=== PATIENT | female | born 1935 | race Caucasian/White ===

== ENCOUNTER 2017-01-26 12:35 | Emergency (ER) | payer OTHER, BC ==
[~2017-01-26] VITALS: Ht 157.5 cm; Wt 83.8 kg
[2017-01-26 13:31] LABS: EOSINOPHIL (%) 0.6 % (0-5); HEMATOCRIT 42.4 % (36.0-46.0); IMMATURE GRANULOCYTE (%) 0.2 % (0.0-0.7); INSTRUMENT ABS NEUTROPHIL CT 3.5 K/uL; LYMPHOCYTE COUNT 1.2 K/uL (1.0-2.8); MCH 32.4 PG (29.0-34.0); MCV 95.3 FL (83-99); MEAN PLAT.VOLUME 10.3 uM^3 (9.5-12.4); MONOCYTE (%) 11.3 % (3-12); MONOCYTE COUNT 0.6 K/uL (0-0.8); NEUTROPHIL (%) 65.9 % (45-76); NEUTROPHIL COUNT 3.5 K/uL (1.8-6.4); PLATELET COUNT 219 K/uL (156-360); RBC DIS.WIDTH-CV 12.2 % (11.8-14.6); RED BLOOD COUNT 4.45 M/uL (3.80-5.20); WHITE BLOOD COUNT 5.3 K/uL (4.1-10.2)
[2017-01-26 13:36] LABS: PROTHROMBIN TIME 11.5 SEC (10.2-12.9)
[2017-01-26 13:39] LABS: PTT 29.5 SEC (25-37)
[2017-01-26 13:44] LABS: CHLORIDE 108 mEq/L (99-109); POTASSIUM 3.8 mEq/L (3.7-5.4); SODIUM 140 mEq/L (136-147)
[2017-01-26 13:46] LABS: GLUCOSE 94 mg/dL (70-99)
[2017-01-26 13:47] LABS: ANION GAP 12 MEQ/L (2-14)
[2017-01-26 13:48] LABS: TOTAL BILIRUBIN 0.4 mg/dL (0.0-1.0)
[2017-01-26 13:50] LABS: ALKALINE PHOSPHATASE 74 IU/L (3-129); GFR ESTIMATE (CALCULATED) > 59 mL/min/
[2017-01-26 13:51] LABS: UREA NITROGEN (BUN) 14 mg/dL (9-23)
[2017-01-26] MEDS ORDERED: CLARITIN10 MG PO (17:08)
[2017-01-26] MEDS ORDERED: OYSTER SHELL 51 EACH PO (17:09)
[2017-01-26] MEDS ORDERED: BREO ELLIPTA 21 EACH IH (17:10)
[2017-01-26] MEDS ORDERED: FLONASE16 G1 BOTH NARES (17:11)
[2017-01-26] MEDS ORDERED: BUPROPION XL150 MG PO (17:11)
[2017-01-26] MEDS ORDERED: LEVOTHYROXINE175 MCG PO (17:12)
[2017-01-26] MEDS ORDERED: PLAVIX75 MG PO (17:13)
[2017-01-26] MEDS ORDERED: LOSARTAN POTAS100 MG PO (17:13)
[2017-01-26] MEDS ORDERED: KETOTIFEN FUMARA5 M1 BOTH EYES (17:13)
[2017-01-26] MEDS ORDERED: PERCOCET 5/31 TABLET PO (17:14)
[2017-01-26] MEDS ORDERED: MONTELUKAST SOD10 MG PO (17:14)
[2017-01-26] MEDS ORDERED: TRAZODONE HCL100 MG PO (17:14)
[2017-01-26] MEDS ORDERED: SENEXON-S TABL1 EACH PO (17:15)
[2017-01-26] MEDS ORDERED: ACETAMINOPHEN325 M1 PO ×2 (17:16→17:23)
[2017-01-26] MEDS ORDERED: PRIMIDONE50 MG PO (17:17)
[2017-01-26] MEDS ORDERED: RISA-BID CAPLE1 EACH PO (17:17)
[2017-01-26] MEDS ORDERED: DIVALPROEX SOD250 MG PO (17:18)
[2017-01-26] MEDS ORDERED: CARAFATE100 MG/ML PO (17:19)
[2017-01-26] MEDS ORDERED: PANTOPRAZOLE SO40 MG PO (17:19)
[2017-01-26] MEDS ORDERED: HYDRALAZINE HCL50 MG PO (17:19)
[2017-01-26] MEDS ORDERED: ASPERCREME1 EACH TP (17:20)
[2017-01-26] MEDS ORDERED: VITAMIN D31000 UNI2 PO (17:20)
[2017-01-26] MEDS ORDERED: DULCOLAX10 MG PR (17:21)
[2017-01-26] MEDS ORDERED: LORAZEPAM0.5 MG PO (17:21)
[2017-01-26] MEDS ORDERED: DUONEB 2.5-0.5 M3 ML AEROSOL (17:21)
[2017-01-26] MEDS ORDERED: TUSSIN DM CLEA118 M1 PO (17:22)
[2017-01-26] MEDS ORDERED: MIRALAX17 GM PO (17:22)
[2017-01-26 18:15] LABS: MCV 95.2 FL (83-99)
[2017-01-26 22:06] VITALS: BP 159/93
== END 2017-01-26 22:31 | disposition home or self-care (01) ==
LOC: EME 12:35
PROVIDERS: Emergency Medicine
PROC: 0JQ83ZZ Repair Abdomen Subcutaneous Tissue and Fascia, Percutaneous Approach (ICD-10-PCS; principal; 2017-01-26)
DX: T81.30XA Disruption of wound, unspecified, initial encounter (principal); K43.9 Ventral hernia without obstruction or gangrene; S30.1XXA Contusion of abdominal wall, initial encounter; X58.XXXA Exposure to other specified factors, initial encounter; R10.32 Left lower quadrant pain; R19.7 Diarrhea, unspecified; R45.1 Restlessness and agitation; Q61.01 Congenital single renal cyst; I10 Essential (primary) hypertension; Z79.02 Long term (current) use of antithrombotics/antiplatelets
CPT/HCPCS: 74177; 80053; 85014; 85018; 85025; 85610; 85730; 86850; 86900; 86901; 99281; 99285; J0690; J1630; J3010; J7030